=== PATIENT | male | born 1980 | race Caucasian/White ===

== ENCOUNTER 2017-03-23 23:31 | Emergency (ER) | payer OTHER ==
--- NOTE | ~2017-03-23 | ER ---
PATIENT'S NAME: OVIDIO BILLINGS [facility] AGE: 36 Y [address] ROOM: [place] [address] LOCATION: [facility] ADMIT DATE: 03/23/2017 ER/Outpatient Report DISCHARGE DATE: 03/24/2017 FAMILY PHYSICIAN: PHYSICIAN, NO ATTENDING PHYSICIAN: Erwin Zambrano Time of Arrival: 2339 hours. Time of Evaluation: 2339 hours. CHIEF COMPLAINT: Discharge from penis, burning with urination. HISTORY OF PRESENT ILLNESS: The patient is a 36-year-old male who presents to the emergency department today with a chief complaint of discharge from his penis and burning with urination. He reports this started yesterday. He noted a creamy white discharge from his penis. He has had multiple sexual partners. He did have a new one this weekend. He thinks he may have gotten something from her. PAST MEDICAL HISTORY: Anxiety. PAST SURGICAL HISTORY: None reported. SOCIAL HISTORY: The patient smokes half pack per day for 20 years. Denies any alcohol or illicit drug use. ALLERGIES: NO KNOWN DRUG ALLERGIES. MEDICATIONS: None. PRIMARY CARE DOCTOR: [place] [facility]. REVIEW OF SYSTEMS: All systems are reviewed by myself and negative with the exception of those discussed in HPI and past medical history. PHYSICAL EXAMINATION: VITAL SIGNS: Weight 70 kg, blood pressure 117/66, pulse 82, respiratory rate 16, temperature 98, oxygen saturation 96% on room air. PATIENT'S NAME: OVIDIO BILLINGS [facility] AGE: 36 Y [address] ROOM: [place] [address] LOCATION: [facility] ADMIT DATE: 03/23/2017 ER/Outpatient Report DISCHARGE DATE: 03/24/2017 FAMILY PHYSICIAN: PHYSICIAN, NO ATTENDING PHYSICIAN: Erwin Zambrano GENERAL: The patient is a 36-year-old male, appears stated age, in no acute distress. HEENT: Head: Normocephalic, atraumatic. Pupils are equal, round, and reactive to light. NECK: Supple. No nuchal rigidity. CARDIOVASCULAR: Regular rate and rhythm. LUNGS: Clear to auscultation bilaterally. No wheezes, rales, or rhonchi. ABDOMEN: Soft, nontender, and nondistended. No rebound, rigidity, or guarding. MUSCULOSKELETAL: The patient moves all 4 extremities. SKIN: Warm and dry. LABORATORY DATA AND X-RAYS: Urinalysis shows 500 leukocyte esterase, negative nitrites, 15 protein, 50-100 wbc's, rare bacteria, rare epithelials. GC and chlamydia are pending. IMPRESSION: 1. Sexually transmitted disease concern. 2. Initial visit. EMERGENCY DEPARTMENT COURSE: The patient was brought back to the examination room. He was seen and evaluated by myself. Laboratory analysis obtained as described above. With the patient's symptoms, I did recommend treating. We did give Rocephin, doxycycline and Flagyl. I have discussed follow up with [facility] in 2-3 days for re-evaluation. We will need full sexually transmitted disease testing. The patient is agreeable without further questions at this time. He was given a prescription for doxycycline and Flagyl. DISPOSITION: The patient was discharged home in good condition. DO SANTI ASHLEY/nena /[id number] d: 03/24/17723 t: 03/24/17 193, OUTPATIENT REPORT
[2017-03-23 23:46] LABS: BILIRUBIN URINE NEGATIVE (NEGATIVE); BLOOD URINE 10 /UL (NEGATIVE); COLOR URINE YELLOW (YELLOW); GLUCOSE URINE NEGATIVE (NEGATIVE); KETONE URINE 5 mg/dL (NEGATIVE); LEUKOCYTES URINE 500 /UL (NEGATIVE); NITRITE URINE NEGATIVE (NEGATIVE); PROTEIN URINE 15 mg/dL (NEGATIVE); SPEC GRAVITY URINE 1.025 (1.003-1.035); TURBIDITY URINE 1+ (CLEAR); UROBILINOGEN URINE 1 mg/dL (NORMAL)
[2017-03-23 23:53] LABS: RBC URINE 0-2 #/HPF (NEGATIVE); WBC URINE 50-100 #/HPF (NEGATIVE)
[2017-03-23 23:54] LABS: BACTERIA URINE RARE (NEGATIVE); EPITHELIAL URINE RARE #/HPF (NEGATIVE); MUCUS URINE 1+ (NEGATIVE)
== END 2017-03-24 01:36 | disposition disaster alternative care site (69) ==
LOC: GMED 23:31
PROVIDERS: Emergency Medicine
DX: R36.9 Urethral discharge, unspecified (principal); R30.0 Dysuria; F41.9 Anxiety disorder, unspecified; F17.210 Nicotine dependence, cigarettes, uncomplicated
CPT/HCPCS: J0696